=== PATIENT | female | born 1940 | race Caucasian/White ===

== ENCOUNTER 2017-07-05 14:50 | Inpatient (IN) ==
[2017-07-05 16:26] LABS: Basophils % 0.3 % (0.0-0.8); Hematocrit 34.7 VOL% (35.7-47.0); Hemoglobin 11.2 GM/DL (12.0-16.0); Immature Granulocytes % 0.3 %; Immature Granulocytes Absolute 0.01 #; Lymphocytes # 0.4 10*3/uL (1.4-4.0); Lymphocytes % 11.2 % (21.3-54.2); Mean Corpuscular HGB Conc 32.3 GM/DL (32-36); Mean Corpuscular Hemoglobin 29 PG (27-34); Mean Corpuscular Volume 90.8 FL (87-102); Mean Platelet Volume 10.6 FL (9.6-12.0); Monocytes # 0.3 10*3/uL (0.11-0.8); Monocytes % 7.4 % (1.7-12.7); Neutrophils # 2.7 10*3/uL (1.4-7.4); Neutrophils % 80.8 % (38.7-73.9); Platelet Count 129 T/CUMM (130-400); Red Blood Count 3.82 MC/CUMM (3.8-5.5); Red Cell Distribution Width 15.3 % (9.3-17.3); White Blood Count 3.4 T/CUMM (4-12)
[2017-07-05 16:48] LABS: Apearance,Urine CLEAR (Clear); Bilirubin,Urine Negative (Negative); Blood, Urine Small mg/dL (Negative); Glucose,Urine (UA) Negative (Negative); Ketones,Urine 5 mg/dL (Negative); Mucus,Urine Occasional /LPF (Occasional); Nitrite,Urine Negative (Negative); Protein,Urine Negative; RBC,Urine 6 /HPF (0-4); Urine Color Yellow (Yellow); Urine Specific Gravity 1.015 (1.001-1.035); WBC,Urine 1 /HPF (0-6)
[2017-07-05 16:50] LABS: Alanine Aminotransferase 17 U/L (13-56); Albumin 3.6 G/DL (3.4-5.0); Alkaline Phosphatase 119 U/L (45-117); Aspartate Amino Transferase 14 U/L (0-37); Bilirubin,Total < 0.39 MG/DL (0.2-1.0); Blood Urea Nitrogen 12 MG/DL (7-18); Calcium 8.2 MG/DL (8.5-10.1); Glucose 97 MG/DL (74-106); Potassium 3.5 MMOL/L (3.5-5.1); Sodium 136 MMOL/L (136-145); Total Protein 6.7 G/DL (6.4-8.3)
[2017-07-05] MEDS ORDERED: cefTRIAXone 1,000 MG in SODIUM CHLORIDE 0.9% 100 ML IV STA (17:13)
[2017-07-05] MEDS ORDERED: ONDANSETRON 4 MG/2 ML VIAL IV STA (17:58)
[2017-07-05] MEDS ORDERED: SODIUM CHLORIDE 0.9% 1,000 ML IV STA (17:58)
[2017-07-05] MEDS ORDERED: cefTRIAXone 1,000 MG VIAL ONE (18:00)
[2017-07-05] MEDS ORDERED: ONDANSETRON 4 MG/2 ML VIAL ONE (18:00)
[2017-07-05] MEDS ORDERED: MORPHINE 2 MG/1 ML SYRINGE IV PRN (21:00)
[2017-07-05] MEDS: ONDANSETRON 4 MG/2 ML VIAL IV PRN (21:40)
[2017-07-05] MEDS: SODIUM CHLORIDE 0.9% 1,000 ML IV SCH (21:41)
[2017-07-05] MEDS: DOCUSATE SODIUM 100 MG CAPSULE PO SCH (21:45)
[2017-07-06] MEDS: MORPHINE 10 MG/1 ML VIAL IV PRN ×3 (00:04→07:44)
[2017-07-06] MEDS: SODIUM CHLORIDE 0.9% 1,000 ML IV SCH ×3 (05:14→20:50)
[2017-07-06] MEDS: ONDANSETRON 4 MG/2 ML VIAL IV PRN ×3 (07:42→20:48)
[2017-07-06] MEDS ORDERED: cefTRIAXone 1,000 MG in SODIUM CHLORIDE 0.9% 100 ML IV SCH (08:30)
[2017-07-06 09:09] LABS: Immature Granulocytes % 0.6 %; Immature Granulocytes Absolute 0.02 #; Lymphocytes # 0.8 10*3/uL (1.4-4.0); Lymphocytes % 21.6 % (21.3-54.2); Mean Corpuscular HGB Conc 32.4 GM/DL (32-36); Mean Corpuscular Hemoglobin 30 PG (27-34); Mean Corpuscular Volume 91.4 FL (87-102); Mean Platelet Volume 11.1 FL (9.6-12.0); Monocytes # 0.4 10*3/uL (0.11-0.8); Monocytes % 10.2 % (1.7-12.7); Neutrophils # 2.4 10*3/uL (1.4-7.4); Neutrophils % 67.6 % (38.7-73.9); Platelet Count 124 T/CUMM (130-400); Red Blood Count 3.72 MC/CUMM (3.8-5.5); Red Cell Distribution Width 14.8 % (9.3-17.3); White Blood Count 3.6 T/CUMM (4-12)
[2017-07-06 09:40] LABS: Osmolality,Calculated 278.4 MOS/KG (273-304); Potassium 3.5 MMOL/L (3.5-5.1)
[2017-07-06] MEDS: PANTOPRAZOLE 40 MG TABLET PO SCH (10:52)
[2017-07-06] MEDS: DOCUSATE SODIUM 100 MG CAPSULE PO SCH ×2 (10:52→20:37)
[2017-07-06] MEDS: LEVOTHYROXINE 75 MCG TABLET PO SCH (10:53)
[2017-07-06] MEDS: ACETAMINOPHEN 325 MG TABLET PO PRN ×2 (13:03→20:33)
[2017-07-06] MEDS ORDERED: PROMETHAZINE 25 MG/1 ML VIAL IM PRN (13:38)
[2017-07-06] MEDS ORDERED: traMADol 50 MG TABLET PO PRN ×2 (13:45→13:50)
[2017-07-06] MEDS: GABAPENTIN 600 MG TABLET PO SCH ×2 (15:04→20:37)
[2017-07-06] MEDS: cefTRIAXone 1,000 MG in SYRINGE 1 EACH IV SCH (20:37)
[2017-07-06] MEDS ORDERED: SIMVASTATIN 20 MG TABLET PO SCH (21:00)
[2017-07-07] MEDS: ONDANSETRON 4 MG/2 ML VIAL IV PRN ×2 (03:56→11:05)
[2017-07-07] MEDS: ACETAMINOPHEN 325 MG TABLET PO PRN ×3 (03:59→15:50)
[2017-07-07] MEDS: SODIUM CHLORIDE 0.9% 1,000 ML IV SCH ×3 (05:03→20:03)
[2017-07-07 05:35] LABS: Hematocrit 33.4 VOL% (35.7-47.0); Hemoglobin 10.6 GM/DL (12.0-16.0); Lymphocytes # 0.4 10*3/uL (1.4-4.0); Lymphocytes % 12.9 % (21.3-54.2); Mean Corpuscular HGB Conc 31.7 GM/DL (32-36); Mean Corpuscular Hemoglobin 29 PG (27-34); Mean Corpuscular Volume 92.8 FL (87-102); Mean Platelet Volume 11.1 FL (9.6-12.0); Monocytes # 0.2 10*3/uL (0.11-0.8); Monocytes % 8.2 % (1.7-12.7); Neutrophils # 2.2 10*3/uL (1.4-7.4); Neutrophils % 78.9 % (38.7-73.9); Platelet Count 113 T/CUMM (130-400); Red Cell Distribution Width 14.6 % (9.3-17.3); White Blood Count 2.8 T/CUMM (4-12)
[2017-07-07 06:02] LABS: Calcium 7.9 MG/DL (8.5-10.1); Osmolality,Calculated 274.7 MOS/KG (273-304)
[2017-07-07] MEDS: LEVOTHYROXINE 75 MCG TABLET PO SCH (07:14)
[2017-07-07] MEDS ORDERED: NON-FORMULARY MEDICATION (Omeprazole [Prilosec] 20 MG) PO SCH (09:00)
[2017-07-07] MEDS ORDERED: POTASSIUM CHLORIDE 20 MEQ TABLET PO SCH (09:00)
[2017-07-07] MEDS: CHOLECALCIFEROL 1,000 UNIT TABLET PO SCH (10:37)
[2017-07-07] MEDS: LISINOPRIL 20 MG TABLET PO SCH (10:37)
[2017-07-07] MEDS: GABAPENTIN 600 MG TABLET PO SCH ×3 (10:37→22:01)
[2017-07-07] MEDS: MULTIVITAMIN (CENTRUM) TABLET PO SCH (10:37)
[2017-07-07] MEDS: ASPIRIN EC 81 MG TABLET PO SCH (10:37)
[2017-07-07] MEDS: hydroCHLOROthiazide 12.5 MG CAPSULE PO SCH (10:38)
[2017-07-07] MEDS: PANTOPRAZOLE 40 MG TABLET PO SCH (10:38)
[2017-07-07] MEDS: MECLIZINE 25 MG TABLET PO SCH ×2 (15:50→22:02)
[2017-07-07] MEDS: cefTRIAXone 1,000 MG in SYRINGE 1 EACH IV SCH (21:57)
[2017-07-07] MEDS: DOCUSATE SODIUM 100 MG CAPSULE PO SCH (22:01)
[2017-07-07] MEDS: POTASSIUM CHLORIDE 20 MEQ TABLET PO SCH (22:02)
[2017-07-08] MEDS: LIDOCAINE 5% PATCH TRANSDERM PRN (01:29)
[2017-07-08] MEDS: ACETAMINOPHEN 325 MG TABLET PO PRN ×2 (01:32→17:30)
[2017-07-08] MEDS: SODIUM CHLORIDE 0.9% 1,000 ML IV SCH ×3 (03:59→23:05)
[2017-07-08 06:00] LABS: Basophils % 0.5 % (0.0-0.8); Eosinophils % 0.5 % (0.00-10.9); Hemoglobin 11.1 GM/DL (12.0-16.0); Immature Granulocytes % 0.5 %; Immature Granulocytes Absolute 0.01 #; Lymphocytes # 0.5 10*3/uL (1.4-4.0); Lymphocytes % 24.4 % (21.3-54.2); Mean Corpuscular HGB Conc 32.6 GM/DL (32-36); Mean Corpuscular Hemoglobin 30 PG (27-34); Mean Corpuscular Volume 92.1 FL (87-102); Mean Platelet Volume 10.7 FL (9.6-12.0); Monocytes # 0.2 10*3/uL (0.11-0.8); Monocytes % 9.5 % (1.7-12.7); Neutrophils # 1.3 10*3/uL (1.4-7.4); Neutrophils % 64.6 % (38.7-73.9); Platelet Count 115 T/CUMM (130-400); Red Blood Count 3.69 MC/CUMM (3.8-5.5); Red Cell Distribution Width 14.2 % (9.3-17.3)
[2017-07-08 06:19] LABS: Calcium 8.1 MG/DL (8.5-10.1); Osmolality,Calculated 275.4 MOS/KG (273-304); Potassium 3.5 MMOL/L (3.5-5.1)
[2017-07-08 07:05] LABS: Giant Platelets Few; Hypochromasia 1+; Ovalocytes Slight; Platelet Estimate Decreased
[2017-07-08] MEDS: LEVOTHYROXINE 75 MCG TABLET PO SCH (07:16)
[2017-07-08] MEDS: LISINOPRIL 20 MG TABLET PO SCH (09:40)
[2017-07-08] MEDS: PANTOPRAZOLE 40 MG TABLET PO SCH (09:40)
[2017-07-08] MEDS: GABAPENTIN 600 MG TABLET PO SCH ×3 (09:40→22:02)
[2017-07-08] MEDS: ASPIRIN EC 81 MG TABLET PO SCH (09:40)
[2017-07-08] MEDS: MECLIZINE 25 MG TABLET PO SCH ×3 (09:40→22:02)
[2017-07-08] MEDS: CHOLECALCIFEROL 1,000 UNIT TABLET PO SCH (09:40)
[2017-07-08] MEDS: MULTIVITAMIN (CENTRUM) TABLET PO SCH (09:40)
[2017-07-08] MEDS: POTASSIUM CHLORIDE 20 MEQ TABLET PO SCH ×2 (09:40→22:03)
[2017-07-08] MEDS: hydroCHLOROthiazide 12.5 MG CAPSULE PO SCH (09:41)
[2017-07-08] MEDS: cefTRIAXone 1,000 MG in SYRINGE 1 EACH IV SCH (21:55)
[2017-07-08] MEDS: DOCUSATE SODIUM 100 MG CAPSULE PO SCH (22:02)
[2017-07-09] MEDS: ACETAMINOPHEN 325 MG TABLET PO PRN (05:33)
[2017-07-09] MEDS: LIDOCAINE 5% PATCH TRANSDERM PRN (05:33)
[2017-07-09] MEDS: LEVOTHYROXINE 75 MCG TABLET PO SCH (05:51)
[2017-07-09] MEDS: hydroCHLOROthiazide 12.5 MG CAPSULE PO SCH (08:15)
[2017-07-09] MEDS: CHOLECALCIFEROL 1,000 UNIT TABLET PO SCH (08:16)
[2017-07-09] MEDS: MULTIVITAMIN (CENTRUM) TABLET PO SCH (08:16)
[2017-07-09] MEDS: POTASSIUM CHLORIDE 20 MEQ TABLET PO SCH (08:16)
[2017-07-09] MEDS: GABAPENTIN 600 MG TABLET PO SCH (08:16)
[2017-07-09] MEDS: PANTOPRAZOLE 40 MG TABLET PO SCH (08:16)
[2017-07-09] MEDS: MECLIZINE 25 MG TABLET PO SCH (08:16)
[2017-07-09] MEDS: ASPIRIN EC 81 MG TABLET PO SCH (08:17)
[2017-07-09] MEDS: LISINOPRIL 20 MG TABLET PO SCH (08:17)
[2017-07-09 08:22] VITALS: BP 145/88
== END 2017-07-09 10:58 | disposition home or self-care (01) | DRG 392 ==
LOC: EDBD → EDUNIT# → N.ED 14:50 → N.EDINP 14:50 → N.2E 19:29
PROVIDERS: ADMIT Internal Medicine; ATTEND Internal Medicine